=== PATIENT | female | born 1990 | race Caucasian/White ===

== ENCOUNTER 2022-09-24 20:48 | Emergency (ER) | payer OTHER ==
[~2022-09-24] VITALS: Ht 154.9 cm; Wt 52.2 kg
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
[2022-09-24 21:07] VITALS: BP_SYST 128
[2022-09-24] MEDS ORDERED: MORPHINE 4 MG INJ. 4 MG/ML VIAL IVP ONE (21:30)
[2022-09-24] MEDS ORDERED: ONDANSETRON HCL 4 MG/2 ML VIAL IVP ONE (21:30)
--- NOTE | 2022-09-24 22:30 | NUR ---
FIRST CONTACT WITH PT. ASSESSMENT COMPLETED. AWAITING EVAL AND ORDERS.
--- NOTE | 2022-09-24 23:00 | NUR ---
PT STATES PREVIOUS PAIN MED EFFECTIVE.
--- NOTE | 2022-09-25 00:10 | NUR ---
PT STATES PAIN HAS RETURNED TO PREVIOUS LEVEL. MD INFORMED AND NEW ORDERS GIVEN
[2022-09-25] MEDS ORDERED: ONDANSETRON HCL 4 MG/2 ML VIAL IVP ONE (00:30)
[2022-09-25] MEDS ORDERED: MORPHINE 4 MG INJ. 4 MG/ML VIAL IVP ONE (00:30)
[2022-09-25] MEDS ORDERED: ACET-3465 PO (02:03)
[2022-09-25] MEDS ORDERED: OXYC-128 PO (02:03)
--- NOTE | 2022-09-25 02:16 | NUR ---
Patient given written and verbal discharge instructions and verbalizes understanding. ER MD SANDS discussed with patient the results and treatment provided. Patient in stable condition. ID arm band removed. IV catheter removed intact and dressing applied, no active bleeding. Rx of TYLENOT AND NORCO given. Patient educated on pain management and to follow up with PMD. Pain Scale . Opportunity for questions provided and answered. Medication side effect fact sheet provided.
[2022-09-25 02:22] VITALS: BP_SYST 126
== END 2022-09-25 02:22 | disposition home or self-care (01) ==
LOC: SED 20:48
DX: S86.011A Strain of right Achilles tendon, initial encounter (principal); I10 Essential (primary) hypertension; Z88.1 Allergy status to other antibiotic agents; Z79.899 Other long term (current) drug therapy; W05.2XXA Fall from non-moving motorized mobility scooter, initial encounter; Y93.89 Activity, other specified; Y92.89 Other specified places as the place of occurrence of the external cause; Y99.8 Other external cause status
CPT/HCPCS: 99284; 96374; 29515; 96375; 73610; 81025; 96376; J2405 ×2; J2270 ×2